=== PATIENT | male | born 1975 | race Caucasian/White ===

== ENCOUNTER 2017-01-02 22:43 | Emergency (ER) | payer SELFPAY ==
[~2017-01-02] VITALS: Ht 177.8 cm; Wt 86.0 kg
[2017-01-02 22:53] VITALS: Ht 177.8 cm; Wt 86.0 kg
[2017-01-03] MEDS ORDERED: hydrALAzine 20 MG INJ IV ONE (01:00)
[2017-01-03 01:36] LABS: BASOPHIL # 0.1 10^3/ul (0.0-0.1); BASOPHILS % 0.8 % (0.0-2.0); EOSINOPHILS # 0.2 10^3/ul (0.0-0.5); EOSINOPHILS % 2.5 % (0.0-7.0); HEMATOCRIT 44.7 % (42.0-52.0); HEMOGLOBIN 15.5 g/dl (14.0-18.0); LYMPHOCYTES # 1.3 10^3/ul (0.8-2.9); LYMPHOCYTES % 14.2 % (15.0-51.0); MEAN CORPUSCULAR HEMOGLOBIN 30.8 pg (29.0-33.0); MEAN CORPUSCULAR HGB CONC 34.6 g/dl (32.0-37.0); MEAN CORPUSCULAR VOLUME 88.9 fl (82.0-101.0); MEAN PLATELET VOLUME 7.7 fl (7.4-10.4); MONOCYTE # 0.6 10^3/ul (0.3-0.9); MONOCYTES % 7.2 % (0.0-11.0); NEUTROPHIL # 6.7 10^3/ul (1.6-7.5); NEUTROPHILS % 75.3 % (39.0-77.0); PLATELET COUNT 314 10^3/UL (140-440); RED BLOOD COUNT 5.03 10^6/ul (4.70-6.10); RED CELL DISTRIBUTION WIDTH 13.2 % (11.5-14.5); UNCORRECTED WBC 8.9 10^3/ul (4.8-10.8); WHITE BLOOD COUNT 8.9 10^3/ul (4.8-10.8)
[2017-01-03 01:37] LABS: CONDITION 1
[2017-01-03 01:43] LABS: INR 1.03; PROTIME 13.5 Sec (12.2-14.2); PT RATIO 1.1
[2017-01-03 01:44] LABS: PARTIAL THROMBOPLASTIN TIME 32.2 Sec (25.0-35.0)
[2017-01-03 01:45] LABS: CHLORIDE 100 mmol/L (97-110); POTASSIUM 3.7 mmol/L (3.5-5.1); SODIUM 143 mmol/L (135-144)
[2017-01-03 01:47] LABS: CREATININE 0.97 mg/dl (0.61-1.24)
[2017-01-03 01:48] LABS: ANION GAP 17 (8-16); BLOOD UREA NITROGEN 19 mg/dl (7-20); CALCIUM 9.9 mg/dl (8.4-10.2); CARBON DIOXIDE 30 mmol/L (21-31); GLUCOSE 115 mg/dl (70-220)
--- NOTE | 2017-01-03 01:57 | RADRPT ---
PROCEDURE: XR Chest. CLINICAL INDICATION: Chest Pain. TECHNIQUE: 2 frontal chest x-rays. COMPARISON: None. FINDINGS: The lungs are clear. No focal opacification is seen. The cardiomediastinal silhouette is unremarka ble. The osseous structures are unremarkable. ECG leads are projected over the chest. IMPRESSION: 1. There is no acute cardiopulmonary process. RPTAT: HJES .Colby Esqueda MD, MD Date Time Electronically viewed and signed by .Colby Esqueda MD, on 01/03/2017 01:57 .S/
[2017-01-03 02:00] LABS: TROPONIN-I < 0.012 ng/ml (0.00-0.12)
[2017-01-03] MEDS ORDERED: HYDR-3671 PO (02:33)
--- NOTE | 2017-01-03 02:37 | ERD ---
ER Documentation Chief Complaint Date/Time DATE: 01/03/17 TIME: 02:34 Chief Complaint hypertension today HPI There is a 41-year-old male comes in with elevated blood pressure today. Patient was going to urgent care and found to have elevated blood pressure. Denies any symptomatology whatsoever. ROS All systems reviewed and are negative except as per history of present illness. Medications Home Meds Active Scripts Hydralazine Hcl* (Hydralazine Hcl*) 25 Mg Tab, 25 MG PO Q6, #30 TAB Prov:ALONSO CHARLES 01/03/17 Allergies Allergies: Coded Allergies: No Known Allergy (Unverified , 01/02/17) PMhx/Soc Medical and Surgical Hx: pt denies Surgical Hx History of Surgery: No Anesthesia Reaction: No Hx Neurological Disorder: No Hx Respiratory Disorders: No Hx Cardiac Disorders: Yes (HTN) Hx Psychiatric Problems: No Hx Miscellaneous Medical Probl: No Hx Alcohol Use: Yes Hx Substance Use: No Hx Tobacco Use: Yes Smoking Status: Light tobacco smoker Physical Exam Vitals Vital Signs Date Time Temp Pulse Resp B/P Pulse Ox O2 Delivery O2 Flow Rate FiO2 01/03/17 00:45 98.7 70 20 159/103 98 Room Air 01/02/17 22:53 98.7 96 20 202/127 100 Physical Exam Const: [] Head: Atraumatic Eyes: Normal Conjunctiva ENT: Normal External Ears, Nose and Mouth. Neck: Full range of motion..~ No meningismus. Resp: Clear to auscultation bilaterally Cardio: Regular rate and rhythm, no murmurs Abd: Soft, non tender, non distended. Normal bowel sounds Skin: No petechiae or rashes Back: No midline or flank tenderness Ext: No cyanosis, or edema Neur: Awake and alert Psych: Normal Mood and Affect Result Diagram: 01/03/175 01/03/17 0055 Results 24 hrs Laboratory Tests Test 01/03/17 00:55 Activated Partial Thromboplast Time 32.2Sec Anion Gap 17 Basophils # 0.110^3/ul Basophils % 0.8% Blood Urea Nitrogen 19mg/dl Calcium Level 9.9mg/dl Carbon Dioxide Level 30mmol/L Chloride Level 100mmol/L Creatinine 0.97mg/dl Eosinophils # 0.210^3/ul Eosinophils % 2.5% Glucose Level 115mg/dl Hematocrit 44.7% Hemoglobin 15.5g/dl INR International Normalized Ratio 1.03 Lymphocytes # 1.310^3/ul Lymphocytes % 14.2% Mean Corpuscular Hemoglobin 30.8pg Mean Corpuscular Hemoglobin Concent 34.6g/dl Mean Corpuscular Volume 88.9fl Mean Platelet Volume 7.7fl Monocytes # 0.610^3/ul Monocytes % 7.2% Neutrophils # 6.710^3/ul Neutrophils % 75.3% Nucleated Red Blood Cells # 0.010^3/ul Nucleated Red Blood Cells % 0.0/100WBC Platelet Count 47300^3/UL Potassium Level 3.7mmol/L Prothrombin Time 13.5Sec Prothrombin Time Ratio 1.1 Red Blood Count 5.0310^6/ul Red Cell Distribution Width 13.2% Sodium Level 143mmol/L Troponin I < 0.012ng/ml White Blood Count 8.910^3/ul Current Medications Medications (Trade) Dose Ordered Sig/Dena Route PRN Reason Start Time Stop Time Status Last Admin Dose Admin Hydralazine HCl (Apresoline) 20 mg ONCE ONCE IV 01/03/17 01:00 01/03/17 01:01 DC 01/03/17 01:07 Procedures/MDM EKG: Rate/Rhythm: Normal Sinus Rhythm QRS, ST, T-waves: No changes consistent w/ acute ischemia Impression: No evidence of ischemia or arrhythmia Chest X-ray 1V Interpreted by me: Soft Tissue: No acute abnormalities Bones: No acute abnormalities Mediastinum/Cardiac Silhouette/Lungs: No acute abnormalities Patient's blood pressure was elevated (>120/80) but appears stable without evidence of hypertension emergency or urgency. The patient was counseled about the risks of hypertension and urged to pursue outpatient monitoring and therapy within a week with their primary care physician. Departure Diagnosis: Primary Impression: Hypertension Hypertension type: unspecified secondary hypertension Qualified Code: I15.9 - Secondary hypertension Condition: Stable Patient Instructions: High Blood Pressure (Hypertension) ALONSO CHARLES Jan 03, 2017 02:37
[2017-01-03 02:52] VITALS: BP 144/90; PULSE 88; RESP 20; TEMP 98.2
== END 2017-01-03 02:53 | disposition home or self-care (01) ==
LOC: E/R 22:43
DX: I15.9 Secondary hypertension, unspecified (principal); F17.210 Nicotine dependence, cigarettes, uncomplicated; R07.9 Chest pain, unspecified
CPT/HCPCS: 71010; 80048; 84484; 85025; 85610; 85730; J0360; 36415; 93005; 96374